=== PATIENT | male | born 1995 | race Caucasian/White ===

== ENCOUNTER 2021-01-05 22:14 | Emergency (ER) | payer SELFPAY ==
[~2021-01-05] VITALS: Ht 167.6 cm; Wt 75.0 kg
[2021-01-05] MEDS ORDERED: IBUPROFEN 600MG TABLET PO STA (22:36)
[2021-01-06 03:23] VITALS: BP 117/60
== END 2021-01-06 03:52 | disposition home or self-care (01) ==
LOC: ER 22:14
DX: S00.03XA Contusion of scalp, initial encounter (principal); I10 Essential (primary) hypertension; Z87.891 Personal history of nicotine dependence; Y00.XXXA Assault by blunt object, initial encounter; Y93.89 Activity, other specified; Y92.488 Other paved roadways as the place of occurrence of the external cause
CPT/HCPCS: 99284